=== PATIENT | female | born 1960 | race Caucasian/White ===

== ENCOUNTER 2020-06-25 12:35 | Outpatient (CLI) | payer MEDICARE, MEDICAID ==
--- NOTE | 2020-06-25 13:13 | CT ---
Exam: Noncontrast chest CT; CT lung scan low dose HISTORY:Low-dose screening lung CT. Nicotine dependence. Current smoker. 1 pack per day x40 years. [place] PD. COMPARISON: None TECHNIQUE: Low-dose screening lung CT is performed utilizing institutional protocol FINDINGS: Lung screening specific (LUNG-RADS): Category 3, probably benign. Groundglass nodule in the superior segment of the right lower lobe. Additional masses and nodules are not appreciated on the right or left lung. Potential significant incidentals (lung RADS category S): None Pulmonary incidentals:Mild dependent atelectatic changes. Other incidentals: Coronary disease. Atherosclerosis of the aorta. IMPRESSION: 1. Lung RADS 3, probably benign. Breast nodules in the super segment right lower lobe. 2. Lung Rask category S: Negative. No new or unknown potential significant incidental findings requir ing urgent additional evaluation 3. Other incidentals as above. Recommendation: Six-month follow-up CT
== END 2020-06-25 12:36 | disposition home or self-care (01) ==
LOC: BICCT 12:35
PROVIDERS: ATTEND Internal Medicine
DX: Z12.2 Encounter for screening for malignant neoplasm of respiratory organs (principal); F17.210 Nicotine dependence, cigarettes, uncomplicated; J98.11 Atelectasis; N63.10 Unspecified lump in the right breast, unspecified quadrant
CPT/HCPCS: G0297

== ENCOUNTER 2020-12-28 09:05 | Outpatient (CLI) | payer MEDICARE, MEDICAID | END 2020-12-28 09:06 | disposition home or self-care (01) | LOC: BICULT 09:05 | PROVIDERS: ATTEND Internal Medicine | DX: Z13.6 Encounter for screening for cardiovascular disorders (principal); Z12.2 Encounter for screening for malignant neoplasm of respiratory organs; R93.89 Abnormal findings on diagnostic imaging of other specified body structures; F17.210 Nicotine dependence, cigarettes, uncomplicated | CPT/HCPCS: 71271; 76775 ==